=== PATIENT | female | born 1995 | race Caucasian/White ===

== ENCOUNTER 2018-04-02 12:02 | Emergency (ER) | payer OTHER, SELFPAY ==
[2018-04-02 12:04] VITALS: BP 125/74; PULSE 108; RESP 18; TEMP 36.6; O2SAT 98; BMI 28.8
--- NOTE | 2018-04-02 12:08 | EKG12_ITS ---
Test Reason : IRR HB Blood Pressure : / mmHG Vent. Rate : 093 BPM Atrial Rate : 093 BPM P-R Int : 134 ms QRS Dur : 076 ms QT Int : 342 ms P-R-T Axes : 068 048 040 degrees QTc Int : 425 ms Normal sinus rhythm Right atrial enlargement Borderline ECG Confirmed by JAIME CROUCH, CRISTOPHER ([id number]), city editor SEKOU LEMUS ([id number] on 04/04/2018 3:59:19 PM Referred By: CURTIS Confirmed By:CRISTOPHER SANDOVAL MD
[2018-04-02 12:14] VITALS: PULSE 109; RESP 17; O2SAT 100
--- NOTE | 2018-04-02 12:28 | RAD_ITS ---
STUDY: X-RAY - LUMBAR SPINE REASON FOR EXAM: Female, 22 years old. Back pain. TECHNIQUE: 4 view(s) of the lumbar spine were obtained. COMPARISON: None FINDINGS: Normal lumbar lordosis. There is mild levoscoliosis. There is a normal alignment of the vertebrae. Normal vertebral bodies and endplates. Normal disc space heights. There is no demonstrated fracture. There is no demonstrated spondylolysis of the pars interarticulares. The soft tissue structures are unremarkable. RAD/L/S Spine Min 4 Views IMPRESSION: Mild scoliosis which could be positional. Otherwise unremarkable examination. Electronically Signed: Andreas Ann MD at 14:11 EDT Tel , Service support ,
[2018-04-02] MEDS: Ketorolac 60 MG/2 ML Vial IM (12:56)
--- NOTE | 2018-04-02 14:37 | ED.DCSUM_ITS ---
- ER Visit Summary Date of Service: 04/02/18 Chief Complaint: [Back pain] History of Present Illness: The patient is a 22 F [presents the emergency room with complaint of back pain for about a week. Patient states that she was lifting weights and after being in the gym she got home and when she try to get out of the vehicle she had a hard time straightening up. Patient complains of pain in her left lower back that radiates towards her left hip and left lateral thigh. Patient had some intermittent numbness and tingling to this area. Patient denies any weakness in extremity. She denies any change in bowel or bladder function. Patient states last night she had some numbness in the thigh and became very anxious and started feeling she was having palpitations. Patient has not had any history of back injury or back trauma. She denies urinary symptoms. Her last menstrual period was about 20 days ago and she is not sexually active.] Physical Examination: [HEENT-PERRLA, EOMI. Cranial nerves II through XII grossly intact. TMs clear. Mucous membranes moist. No adenopathy. Cardiovascular-regular rate and rhythm without murmur or ectopy Lungs-clear to auscultation, chest wall stable without crepitus or subcu emphysema Abdomen-normoactive bowel sounds, soft, nontender, no rebound or rigidity, no peritoneal signs. Back exam-patient has some diffuse tenderness palpation over the lumbar paraspinal musculature as well as the lumbar spine. She has a positive straight leg raise on the left with pain at about 30 degrees. Deep tendon reflexes are plus 1 out of 4 bilaterally at the patella and Achilles. Patient has normal L5 extension bilaterally. She has normal sensation to light touch. Extremities-intact ?4, normal range of motion, normal pulses, atraumatic] Test Results: [Lumbar x-rays showed nothing significant.] Emergency Department Course and Treatment: [Patient was medicated with Toradol as she is driving.] Treatment Plan: [Patient will be referred to orthopedics for follow-up. Patient will be given a prescription for Flexeril, Perry, and Medrol Dosepak.] Disposition: [Discharged home in stable condition] Impression: [Sciatica/lumbar radiculopathy] This note was generated with [employer] dictation software. It may contain incorrect words, spelling, and punctuation that were not noted in review of the chart p rior to signing ED Disposition - Plan for ED Patient: Chief Complaint: Back Referrals: Aquiles Byrne DO [Primary Care Provider] -
--- NOTE | 2018-04-02 14:37 | ED.DEP ---
ED Disposition - Plan for ED Patient: Chief Complaint: Back Instructions: ED Sciatica Prescriptions: Hydrocodone Bitart/Apap 5-325 [[place] 5MG-325MG] 1 tab PO Q4H PRN PRN 2 Days #14 tab PRN Reason: Pain MethylPREDNISolone DosePak [Medrol DosePak] 4 mg PO UD #1 box Cyclobenzaprine [Flexeril] 10 mg PO TID PRN #20 tab PRN Reason: Muscle Spasm Referrals: Aquiles Byrne DO [Primary Care Provider] - 5-7 Days Ariel Peoples DO [STAFF PHYSICIAN] - 5-7 Days
[2018-04-02 14:44] VITALS: PULSE 87; RESP 14; O2SAT 97
[2018-04-02 14:46] VITALS: PULSE 97; RESP 14; O2SAT 99
== END 2018-04-02 14:49 | disposition home or self-care (01) ==
LOC: ED 13:34
PROVIDERS: Emergency Provider Emergency Medicine; Family Provider Student in an Organized Health Care Education/Training Program; PCP Student in an Organized Health Care Education/Training Program
DX: M54.16 Radiculopathy, lumbar region (principal); M54.30 Sciatica, unspecified side
CPT/HCPCS: 72110; 93005; 99282

== ENCOUNTER → 2018-05-19 21:27 | Outpatient (CLI) | payer OTHER, SELFPAY ==
[2018-05-19 08:10] VITALS: BMI 29.7
[2018-05-19 23:21] LABS: Chlamydia Trachomatis by PCR Negative (Negative); Neisserai gonorrhoeae by PCR Negative (Negative); Probe Check PASS; Sample Adequacy Control PASS; Specimen Processing Control PASS
[2018-05-24 11:56] LABS: HPV Reflexed? NOT INDICATED
== END ==
PROVIDERS: Family Provider Student in an Organized Health Care Education/Training Program; PCP Student in an Organized Health Care Education/Training Program; Referring Provider Nurse Practitioner Women's Health; Visit Provider Nurse Practitioner Women's Health
DX: Z11.3 Encounter for screening for infections with a predominantly sexual mode of transmission (principal)
CPT/HCPCS: 87491; 87591; 87624; 88175; G0145